=== PATIENT | male | born 1950 | race Caucasian/White ===

== ENCOUNTER 2017-04-22 09:07 | Emergency (ER) | payer MEDICARE, OTHER ==
[~2017-04-22] VITALS: Ht 170.2 cm; Wt 93.0 kg
[2017-04-22 09:08] VITALS: BP 137/94; PULSE 94; RESP 18; TEMP 97.7; O2SAT 99
[2017-04-22] MEDS ORDERED: IOHEXOL 350 MG/ML 10 ML VIAL (for RAD DIAG) IVCONTRAST ONE (09:08)
[2017-04-22] MEDS ORDERED: PRIL20TA2 PO (09:23)
--- NOTE | 2017-04-22 11:02 | PD ---
HPI Chief Complaint: GI Complaint Time Seen by Provider: 10:59 Travel History International Travel<30 days: No Contact w/Intl Traveler<30days: No Traveled to known affect area: No History of Present Illness HPI 67 YO M with PMH of prostate cancer, diverticulitis presents to the ED for evaluation of 6 month history of abdominal pain, described as tightness across the belt line. Worsened since he ate Slov[place] food 3 days ago. Rated 8/10. No alleviating factors reported. Denies N/V/D, F/C. Endorses dark stools for 3 days. Endorses passing gas. Denies dysuria, hematuria. No treatment at that home. States that the tightness became annoying and painful and prompted his visit today. He endorses daily alcohol use. Denies history of pancreatitis. He lives hands parter in [facility], followed by Dr. Clark here. PFSH Past Medical History Cancer: Yes (PROSTATE 2004) Gastrointestinal Disorders: Yes (DIVERTICULITIS) GERD: Yes Tetanus Vaccination: > 5 Years Past Surgical History Other Surgery: Yes (PROSTATE) Social History Alcohol Use: No Tobacco Use: No Substance Use: No Allergies-Medications (Allergen,Severity, Reaction): Coded Allergies: No Known Allergies (Unverified , 04/22/17) Reported Meds & Prescriptions Reported Meds & Active Scripts Active Oxycodone-Acetaminophen 5-325 mg Tab 1 Tab PO Q6H PRN Flagyl (Metronidazole) 500 Mg Tab 500 Mg PO TID 7 Days Cipro (Ciprofloxacin HCl) 500 Mg Tab 500 Mg PO BID 7 Days Reported Prilosec (Omeprazole Magnesium) 20 Mg Tab 20 Mg PO DAILY Review of Systems Except as stated in HPI: all other systems reviewed are Neg Physical Exam Narrative GENERAL: Well-nourished, well-developed nontoxic appearing white male in no acute distress. SKIN: Focused skin assessment warm/dry. HEAD: Normocephalic. EYES: No scleral icterus. No injection or drainage. NECK: Supple, trachea midline. No JVD or lymphadenopathy. CARDIOVASCULAR: Regular rate and rhythm without murmurs, gallops, or rubs. RESPIRATORY: Breath sounds clear and equal bilaterally. No accessory muscle use. GASTROINTESTINAL: Abdomen soft, nondistended. Tender to palpation in the lateral LUQ. Active bowel sounds. RECTAL EXAM: No masses or tenderness, stool is brown. Guaiac negative. MUSCULOSKELETAL: No cyanosis, or edema. BACK: Nontender without obvious deformity. No CVA tenderness. Data Data Last Documented VS Vital Signs Date Time Temp Pulse Resp B/P (MAP) Pulse Ox O2 Delivery O2 Flow Rate FiO2 04/22/17 14:21 04/22/17 09:08 97.7 94 18 99 Room Air Orders Orders Complete Blood Count With Diff (04/22/17 11:08) Comprehensive Metabolic Panel (04/22/17 11:08) Lipase (04/22/17 11:08) Lactic Acid (04/22/17 11:08) Urinalysis - C+S If Indicated (04/22/17 11:08) Iv Access Insert/Monitor (04/22/17 11:08) Ecg Monitoring (04/22/17 11:08) Oximetry (04/22/17 11:08) Sodium Chloride 0.9% Flush (Ns Flush) (04/22/17 11:15) Ct Abd/Pel W Iv Contrast(Rout) (04/22/17 11:18) Morphine Inj (Morphine Inj) (04/22/17 12:00) Ondansetron Inj (Zofran Inj) (04/22/17 12:00) Sodium Chlorid 0.9% 500 Ml Inj (Ns 500 M (04/22/17 12:00) Iohexol 350 Inj (Omnipaque 350 Inj) (04/22/17 09:08) Ed Discharge Order (04/22/17 13:45) Labs Laboratory Tests Test 04/22/17 11:15 04/22/17 11:20 White Blood Count 9.6 TH/MM3 Red Blood Count 4.42 MIL/MM3 Hemoglobin 15.4 GM/DL Hematocrit 43.7 % Mean Corpuscular Volume 99.0 FL Mean Corpuscular Hemoglobin 34.8 PG Mean Corpuscular Hemoglobin Concent 35.2 % Red Cell Distribution Width 12.3 % Platelet Count 153 TH/MM3 Mean Platelet Volume 9.0 FL Neutrophils (%) (Auto) 73.7 % Lymphocytes (%) (Auto) 14.9 % Monocytes (%) (Auto) 10.3 % Eosinophils (%) (Auto) 0.6 % Basophils (%) (Auto) 0.5 % Neutrophils # (Auto) 7.1 TH/MM3 Lymphocytes # (Auto) 1.4 TH/MM3 Monocytes # (Auto) 1.0 TH/MM3 Eosinophils # (Auto) 0.1 TH/MM3 Basophils # (Auto) 0.0 TH/MM3 CBC Comment DIFF FINAL Differential Comment Blood Urea Nitrogen 14 MG/DL Creatinine 0.75 MG/DL Random Glucose 77 MG/DL Total Protein 7.4 GM/DL Albumin 3.7 GM/DL Calcium Level 8.7 MG/DL Alkaline Phosphatase 57 U/L Aspartate Amino Transf (AST/SGOT) 20 U/L Alanine Aminotransferase (ALT/SGPT) 19 U/L Total Bilirubin 2.0 MG/DL Sodium Level 136 MEQ/L Potassium Level 3.9 MEQ/L Chloride Level 104 MEQ/L Carbon Dioxide Level 25.9 MEQ/L Anion Gap 6 MEQ/L Estimat Glomerular Filtration Rate 104 ML/MIN Lactic Acid Level 0.8 mmol/L Lipase 147 U/L Urine Color LIGHT-YELLOW Urine Turbidity CLEAR Urine pH 6.5 Urine Specific [place] 1.007 Urine Protein NEG mg/dL Urine Glucose (UA) NEG mg/dL Urine Ketones NEG mg/dL Urine Occult Blood NEG Urine Nitrite NEG Urine Bilirubin NEG Urine Urobilinogen LESS THAN 2.0 MG/DL Urine Leukocyte Esterase TRACE Urine RBC LESS THAN 1 /hpf Urine WBC 2 /hpf Urine Bacteria OCC /hpf Urine Hyaline Casts 1 /lpf Microscopic Urinalysis Comment CULT NOT INDICATED MDM Medical Decision Making Medical Screen Exam Complete: Yes Emergency Medical Condition: Yes Differential Diagnosis Diverticulitis versus static cancer versus pancreatitis versus constipation versus other Narrative Course 67 -year-old male with PMH of prostate CA, diverticulitis presents to the ED for evaluation of 6 month history 8, "tight" abdominal pain across the belt line. Worsened 3 days after eating [place] food. Endorses dark stools for 3 days. Endorses passing gas. Sought treatment today after the pain became "annoying." Endorses daily alcoholic use. Lives part-time in [facility] in [place] the rest the year. Followed locally by Dr. Clark. Vitals reviewed. Physical exam reveals a nontoxic-appearing white male in no acute distress. Abdomen soft, tender to deep palpation in the left lateral upper quadrant. Active bowel sounds. Exam otherwise unremarkable. IV was established. Patient was administered 4 mg Zofran, 4 mg morphine IV. CBC: WBC 9.6. Hemoglobin 15.4. CMP: BUN 14. Creatinine 0.75. Bilirubin elevated at 2.0. AST and ALT within normal limits Lipase: 147 Lactic acid: 0.8 UA: Clear, light yellow, trace leukocyte esterase, occasional bacteria. No culture indicated. CT abdomen and pelvis: 1. Acute distal descending and proximal sigmoid diverticulitis without perforation, abscess, or obstruction. 2. Multiple sclerotic foci involving the lumbar spine and pelvis consistent with metastatic disease. No primary lesion observed. Possibly prostate in origin. 3. Cholelithiasis. I discussed the results of the workup with the patient. He is aware of metastatic disease in the spine and pelvis. Other less I provided him a copy of the CT report to discuss with Dr. Clark. I think he can be safely treated at home. He is agreeable with this plan. He is prescribed Flagyl and Cipro, provided a brief course of pain medications. He was provided a diverticulitis diet. He is instructed take the medication as prescribed, drink plenty of fluids, return for worsening symptoms, otherwise follow up with Dr. Clark. The patient indicated understanding of the instructions. He is stable and discharged home. Diagnosis Primary Impression: Diverticulitis Additional Impression: Prostate cancer metastatic to bone Referrals: Katie Clark MD Primary Care Physician Patient Instructions: Diverticulitis (ED), Diverticulitis Diet (ED), General Instructions Additional Instructions: Rest, hydrate. Take antibiotics as they are prescribed, even if your symptoms resolve. Take pain and nausea medications as prescribed, as needed. Do not drive while taking pain medications as they may cause drowsiness. Follow-up with Dr. Clark as discussed. Return to the ED for worsening of symptoms or urgent or emergent medical condition. Med/Other Pt SpecificInfo: Prescription(s) given Scripts Oxycodone-Acetaminophen (Oxycodone-Acetaminophen) 5-325 mg Tab 1 TAB PO Q6H Y for PAIN, #10 TAB 0 Refills Prov: Ronda Rai MD 04/22/17 Metronidazole (Flagyl) 500 Mg Tab 500 MG PO TID for Infection for 7 Days, TAB 0 Refills Prov: Ronda Rai MD 04/22/17 Ciprofloxacin (Cipro) 500 Mg Tab 500 MG PO BID for Infection for 7 Days, #14 TAB 0 Refills Prov: Ronda Rai MD 04/22/17 Disposition: 01 DISCHARGE HOME Condition: Stable Norma Mohamud Apr 22, 2017 11:02
[2017-04-22] MEDS ORDERED: SODIUM CHLORIDE 0.9% FLUSH 10 ML FLUSH IV FLUSH PRN (11:15)
[2017-04-22 11:45] LABS: AUTOMATED NEUTROPHIL # 7.1 TH/MM3 (1.8-7.7); BASOPHIL % 0.5 % (0.0-2.0); EOSINOPHIL # 0.1 TH/MM3 (0-0.4); EOSINOPHIL % 0.6 % (0.0-4.0); HEMATOCRIT 43.7 % (39.0-51.0); HEMOGLOBIN 15.4 GM/DL (13.0-17.0); LYMPH % 14.9 % (9.0-44.0); LYMPHOCYTE # 1.4 TH/MM3 (1.0-4.8); MEAN CORPUSCULAR HEMOGLOBIN 34.8 PG (27.0-34.0); MEAN CORPUSCULAR HGB CONC 35.2 % (32.0-36.0); MONO % 10.3 % (0.0-8.0); NEUT % 73.7 % (16.0-70.0); PLATELET COUNT 153 TH/MM3 (150-450); RED BLOOD COUNT 4.42 MIL/MM3 (4.50-5.90); RED CELL DISTRIBUTION WIDTH 12.3 % (11.6-17.2); WHITE BLOOD COUNT 9.6 TH/MM3 (4.0-11.0)
[2017-04-22 11:53] LABS: BACTERIA, URINE OCC /hpf; BILIRUBIN, URINE NEG (NEG); BLOOD, URINE NEG (NEG); GLUCOSE,URINE NEG (NEG); HYALINE CAST, URINE 1 /lpf (RARE); KETONE, URINE NEG (NEG); NITRITE,URINE NEG (NEG); PH, URINE 6.5 (5.0-8.5); URINE COLOR LIGHT-YELLOW (YELLW/STRAW); URINE LEUKOCYTE ESTERASE TRACE (NEG)
[2017-04-22] MEDS ORDERED: MORPHINE SULFATE 4 MG/ML INJ IV PUSH ONE (12:00)
[2017-04-22] MEDS ORDERED: ONDANSETRON HCL 4 MG/2 ML VIAL IV PUSH ONE (12:00)
[2017-04-22] MEDS ORDERED: SODIUM CHLORID 0.9% 500 ML INJ 500 ML IV ONE (12:00)
[2017-04-22 12:07] LABS: ALBUMIN 3.7 GM/DL (3.4-5.0); AST (GOT) 20 U/L (15-37); BICARBONATE 25.9 MEQ/L (21.0-32.0); BLOOD UREA NITROGEN 14 MG/DL (7-18); CALCIUM 8.7 MG/DL (8.5-10.1); CHLORIDE 104 MEQ/L (98-107); CREATININE 0.75 MG/DL (0.60-1.30); GLOMERULAR FILTRATION RATE 104 ML/MIN (>89); GLUCOSE,RANDOM 77 MG/DL (74-106); LIPASE 147 U/L (73-393); SODIUM (NA) 136 MEQ/L (136-145)
[2017-04-22 12:08] LABS: ALT (GPT) 19 U/L (12-78)
[2017-04-22 12:24] LABS: ALKALINE PHOSPHATASE 57 U/L (45-117); TOTAL PROTEIN 7.4 GM/DL (6.4-8.2)
--- NOTE | 2017-04-22 13:29 | RADRPT ---
EXAM DATE/TIME: 04/22/2017 12:46 This report includes an Addendum and supersedes previous reports for this exam. [facility] COMPARISON: No previous studies available for comparison. INDICATIONS : Lower abdominal pain, dark stools. IV CONTRAST: 88 cc Omnipaque 350 (iohexol) IV ORAL CONTRAST: No oral contrast ingested. RADIATION DOSE: 7.7 CTDIvol (mGy) MEDICAL HISTORY : Carcinoma, prostate. Diverticulosis. Facet arthritis. SURGICAL HISTORY : None. ENCOUNTER: Initial ACUITY: 2 days PAIN SCALE: 4/10 LOCATION: Bilateral lower quadrant TECHNIQUE: Volumetric scanning of the abdomen and pelvis was performed. Using automated exposure control and ad justment of the mA and/or kV according to patient size, radiation dose was kept as low as reasonably achievable to obtain optimal diagnostic quality images. DICOM format image data is available electro nically for review and comparison. FINDINGS: LOWER LUNGS: Mild bibasilar atelectasis. Coronary artery atherosclerotic calcific agent. Heart is normal in size. LIVER: Homogeneous density without lesion. There is no dilation of the biliary tree. Small calcified gallst ones layering within an otherwise normal appearing gallbladder. SPLEEN: Normal size without lesion. PANCREAS: Within normal limits. KIDNEYS: Normal in size and shape. There is no mass, stone or hydronephrosis. ADRENAL GLANDS: Within normal limits. VASCULAR: There is no aortic aneurysm. BOWEL/MESENTERY: There is an acute inflammatory process involving the distal descending colon extending into the proxi mal sigmoid colon. There is cervical vertebral wall thickening and stranding of the adjacent fat. Mul tiple diverticula are seen throughout this region. No free air or free fluid. No abscess. Small bowel and stomach are normal. ABDOMINAL WALL: Within normal limits. RETROPERITONEUM: There is no lymphadenopathy. BLADDER: No wall thickening or mass. A small right-sided Hutch diverticulum. REPRODUCTIVE: Prostate gland is either atrophic or surgically absent. INGUINAL: There is no lymphadenopathy or hernia. MUSCULOSKELETAL: Old right sided rib fractures with lack of union. Sclerotic lesions are seen scattered throughout the lumbar spine, sacrum, and visualized portions of the iliac wings. CONCLUSION: 1. Acute distal descending and proximal sigmoid diverticulitis without perforation, abscess, or obstr uction. 2. Multiple sclerotic foci involving the lumbar spine and pelvis consistent with metastatic disease. No primary lesion observed. Possibly prostate in origin. 3. Cholelithiasis. Saqib Montes Jr., MD on April 22, 2017 at 13:21 Board Certified Radiologist. This report was verified electronically. ADDENDUM: I have compared to a prior CT abdomen and pelvis from [facility] dated May 01, 2016. The sclerotic foci throughout the spine and pelvis are stable from that exam. No new or enlarging lesions are observed. Saqib Montes Jr., MD on April 24, 2017 at 11:28 Board Certified Radiologist. This report was verified electronically.
[2017-04-22] MEDS ORDERED: CIPR-9 PO (13:44)
[2017-04-22] MEDS ORDERED: OXYC1TAB63 PO (13:44)
[2017-04-22] MEDS ORDERED: METR-1 PO (13:44)
[2017-04-24] MEDS ORDERED: [UNRECOGNIZED DRUG - CODE] IM (14:55)
[2017-05-12] MEDS ORDERED: METR-1 PO (10:46)
[2017-05-12] MEDS ORDERED: CIPR-9 PO (10:46)
[2017-05-19] MEDS ORDERED: PROT40TA PO (12:25)
[2017-05-19] MEDS ORDERED: AUGM875T3 PO (12:25)
== END 2017-04-22 14:24 | disposition home or self-care (01) ==
LOC: NEPE 09:07
DX: K57.92 Diverticulitis of intestine, part unspecified, without perforation or abscess without bleeding (principal); C61 Malignant neoplasm of prostate; C79.51 Secondary malignant neoplasm of bone; K80.20 Calculus of gallbladder without cholecystitis without obstruction; K21.9 Gastro-esophageal reflux disease without esophagitis; Z79.899 Other long term (current) drug therapy
CPT/HCPCS: 74177; 80053; 81001; 83605; 83690; 85025; 96361; 96374; 96375; 99285; J2270; J2405; J7040; Q9967

== ENCOUNTER 2017-05-29 14:12 | Emergency (ER) | payer MEDICARE, OTHER ==
[~2017-05-29] VITALS: Ht 177.8 cm; Wt 86.0 kg
[~2017-05-29 14:12] MED LIST: AUGM875T3 PO; CIPR-9 PO; METR-1 PO; OXYC1TAB63 PO; PRIL20TA2 PO; PROT40TA PO
[2017-05-29] MEDS ORDERED: IOHEXOL 350 MG/ML 10 ML VIAL (for RAD DIAG) IVCONTRAST ONE (14:13)
[2017-05-29 14:14] VITALS: BP 193/99; PULSE 71; RESP 18; TEMP 97.9; O2SAT 96
[2017-05-29] MEDS ORDERED: SODIUM CHLOR 0.9% 1000 ML INJ 1,000 ML IV SCH (14:54)
[2017-05-29] MEDS ORDERED: SODIUM CHLORIDE 0.9% FLUSH 10 ML FLUSH IV FLUSH PRN (15:00)
[2017-05-29] MEDS ORDERED: MORPHINE SULFATE 4 MG/ML INJ IV PUSH ONE (15:00)
[2017-05-29] MEDS ORDERED: ONDANSETRON HCL 4 MG/2 ML VIAL IV PUSH ONE (15:00)
--- NOTE | 2017-05-29 15:01 | PD ---
HPI Chief Complaint: Abdominal Pain Time Seen by Provider: 14:47 Travel History International Travel<30 days: No Contact w/Intl Traveler<30days: No Traveled to known affect area: No History of Present Illness HPI 67-year-old male presents for evaluation of abdominal pain. He reports that for over a month he has had left lower quadrant/left flank abdominal pain. Initially he was seen here in April 22 and found to have diverticulitis. Initially was started on ciprofloxacin and Flagyl. Patient's symptoms persisted and on May 19 his primary care physician prescribed him Protonix and Augmentin. He was seen again today by his primary care physician and sent here for further evaluation and treatment. He reports that the pain is worse than when he was initially seen in March. He describes it as a crampy left lower quadrant abdominal pain which is constant. He endorses some nausea. Denies vomiting, diarrhea, constipation, dysuria, fevers, chills. No other complaints. PFSH Past Medical History Cancer: Yes (PROSTATE 2004) Gastrointestinal Disorders: Yes (DIVERTICULITIS) GERD: Yes Past Surgical History Other Surgery: Yes (PROSTATE) Social History Alcohol Use: No Tobacco Use: No Substance Use: No Allergies-Medications (Allergen,Severity, Reaction): Coded Allergies: No Known Allergies (Unverified , 05/29/17) Reported Meds & Prescriptions Reported Meds & Active Scripts Active Phenergan (Promethazine HCl) 25 Mg Tablet 25 Mg PO Q6H PRN Augmentin (Amoxicillin-Clavulanate) 875-125 Mg Tab 1 Tab PO BID 5 Days Protonix (Pantoprazole Sodium) 40 Mg Tab 40 Mg PO DAILY 30 Days Flagyl (Metronidazole) 500 Mg Tab 500 Mg PO TID 10 Days Cipro (Ciprofloxacin HCl) 500 Mg Tab 500 Mg PO BID 10 Days Oxycodone-Acetaminophen 5-325 mg Tab 1 Tab PO Q6H PRN Reported Prilosec (Omeprazole Magnesium) 20 Mg Tab 20 Mg PO DAILY Review of Systems Except as stated in HPI: all other systems reviewed are Neg Physical Exam Narrative GENERAL: Well-developed well-nourished male in no acute distress SKIN: Warm and dry. HEAD: Atraumatic. Normocephalic. EYES: Pupils equal and round. No scleral icterus. No injection or drainage. ENT: No nasal bleeding or discharge. Mucous membranes pink and moist. NECK: Trachea midline. No JVD. CARDIOVASCULAR: Regular rate and rhythm. No murmur appreciated. RESPIRATORY: No accessory muscle use. Clear to auscultation. Breath sounds equal bilaterally. GASTROINTESTINAL: Abdomen soft, left lower quadrant tenderness without guarding. No CVA tenderness. MUSCULOSKELETAL: No obvious deformities. No clubbing. No cyanosis. No edema. NEUROLOGICAL: Awake and alert. No obvious cranial nerve deficits. Motor grossly within normal limits. Normal speech. PSYCHIATRIC: Appropriate mood and affect; insight and judgment normal. Data Data Last Documented VS Vital Signs Date Time Temp Pulse Resp B/P (MAP) Pulse Ox O2 Delivery O2 Flow Rate FiO2 05/29/17 16:56 17 05/29/17 14:14 97.9 71 193/99 (130) 96 Room Air Orders Orders Complete Blood Count With Diff (05/29/17 14:51) Comprehensive Metabolic Panel (05/29/17 14:51) Lipase (05/29/17 14:51) Lactic Acid (05/29/17 14:51) Prothrombin Time / Inr (Pt) (05/29/17 14:51) Act Partial Throm Time (Ptt) (05/29/17 14:51) Urinalysis - C+S If Indicated (05/29/17 14:51) Ct Abd/Pel W Iv Contrast(Rout) (05/29/17 14:51) Iv Access Insert/Monitor (05/29/17 14:51) Ecg Monitoring (05/29/17 14:51) Oximetry (05/29/17 14:51) Sodium Chloride 0.9% Flush (Ns Flush) (05/29/17 15:00) Ondansetron Inj (Zofran Inj) (05/29/17 15:00) Sodium Chlor 0.9% 1000 Ml Inj (Ns 1000 M (05/29/17 14:54) Morphine Inj (Morphine Inj) (05/29/17 15:15) Iohexol 350 Inj (Omnipaque 350 Inj) (05/29/17 14:13) Dicyclomine Inj (Bentyl Inj) (05/29/17 17:30) Ed Discharge Order (05/29/17 17:46) Labs Laboratory Tests Test 05/29/17 15:20 05/29/17 16:50 White Blood Count 6.3 TH/MM3 Red Blood Count 4.60 MIL/MM3 Hemoglobin 15.8 GM/DL Hematocrit 43.9 % Mean Corpuscular Volume 95.3 FL Mean Corpuscular Hemoglobin 34.3 PG Mean Corpuscular Hemoglobin Concent 35.9 % Red Cell Distribution Width 12.2 % Platelet Count 145 TH/MM3 Mean Platelet Volume 7.7 FL Neutrophils (%) (Auto) 79.8 % Lymphocytes (%) (Auto) 12.5 % Monocytes (%) (Auto) 6.9 % Eosinophils (%) (Auto) 0.6 % Basophils (%) (Auto) 0.2 % Neutrophils # (Auto) 5.1 TH/MM3 Lymphocytes # (Auto) 0.8 TH/MM3 Monocytes # (Auto) 0.4 TH/MM3 Eosinophils # (Auto) 0.0 TH/MM3 Basophils # (Auto) 0.0 TH/MM3 CBC Comment DIFF FINAL Differential Comment Prothrombin Time 10.7 SEC Prothromb Time International Ratio 1.1 RATIO Activated Partial Thromboplast Time 28.2 SEC Blood Urea Nitrogen 10 MG/DL Creatinine 0.62 MG/DL Random Glucose 91 MG/DL Total Protein 7.3 GM/DL Albumin 3.9 GM/DL Calcium Level 8.8 MG/DL Alkaline Phosphatase 54 U/L Aspartate Amino Transf (AST/SGOT) 16 U/L Alanine Aminotransferase (ALT/SGPT) 26 U/L Total Bilirubin 2.0 MG/DL Sodium Level 135 MEQ/L Potassium Level 3.9 MEQ/L Chloride Level 99 MEQ/L Carbon Dioxide Level 24.4 MEQ/L Anion Gap 12 MEQ/L Estimat Glomerular Filtration Rate 129 ML/MIN Lactic Acid Level 1.0 mmol/L Lipase 156 U/L Urine Color YELLOW Urine Turbidity CLEAR Urine pH 6.5 Urine Specific [place] 1.019 Urine Protein TRACE mg/dL Urine Glucose (UA) NEG mg/dL Urine Ketones 80 mg/dL Urine Occult Blood NEG Urine Nitrite NEG Urine Bilirubin NEG Urine Urobilinogen LESS THAN 2.0 MG/DL Urine Leukocyte Esterase NEG Urine RBC 1 /hpf Urine WBC 1 /hpf Urine Mucus FEW /lpf Microscopic Urinalysis Comment CULT NOT INDICATED MDM Medical Decision Making Medical Screen Exam Complete: Yes Emergency Medical Condition: Yes Medical Record Reviewed: Yes Differential Diagnosis Diverticulitis, gastritis, ureteral stone, constipation, colitis, mesenteric ischemia, obstruction Narrative Course 67-year-old male who was recently treated for diverticulitis presents with persistent left-sided abdominal pain, some nausea. On examination he has mild left lower quadrant tenderness no guarding. Plan is basically lab work, CT abdomen and pelvis. CT abdomen and pelvis reveals CONCLUSION: 1. DrNidia Shelley sigmoid colon without diverticulitis 2. Right bladder diverticulum 3. No stone or obstruction 4. No inflammatory changes. 5. Gallstones in a benign-appearing gallbladder. The patient has no evidence of diverticulitis on CT imaging. He has no leukocytosis or fever that would warrant additional antibiotic therapy. I did notify Dr. Angeles who is on-call for the patient's primary care physician. He is stable for discharge. Diagnosis Primary Impression: Abdominal pain Additional Instructions: Phenergan for nausea. Advance diet as tolerated. Follow-up with your primary care physician and gastroenterology as scheduled. Return for any acutely new or worsening symptoms. Med/Other Pt SpecificInfo: Prescription(s) given Scripts Promethazine (Phenergan) 25 Mg Tablet 25 MG PO Q6H Y for NAUSEA OR VOMITING, #20 TAB 0 Refills Prov: Cecil Franklin MD 05/29/17 Disposition: 01 DISCHARGE HOME Condition: Stable Chris Abraham May 29, 2017 15:01
[2017-05-29] MEDS ORDERED: MORPHINE SULFATE 2 MG/ML INJ IV PUSH ONE (15:15)
[2017-05-29 15:43] LABS: AUTOMATED NEUTROPHIL # 5.1 TH/MM3 (1.8-7.7); BASOPHIL % 0.2 % (0.0-2.0); EOSINOPHIL % 0.6 % (0.0-4.0); HEMATOCRIT 43.9 % (39.0-51.0); HEMOGLOBIN 15.8 GM/DL (13.0-17.0); LYMPH % 12.5 % (9.0-44.0); LYMPHOCYTE # 0.8 TH/MM3 (1.0-4.8); MEAN CELL VOLUME 95.3 FL (80.0-100.0); MEAN CORPUSCULAR HEMOGLOBIN 34.3 PG (27.0-34.0); MEAN CORPUSCULAR HGB CONC 35.9 % (32.0-36.0); MEAN PLATELET VOLUME 7.7 FL (7.0-11.0); MONO % 6.9 % (0.0-8.0); MONOCYTE # 0.4 TH/MM3 (0-0.9); NEUT % 79.8 % (16.0-70.0); PLATELET COUNT 145 TH/MM3 (150-450); RED CELL DISTRIBUTION WIDTH 12.2 % (11.6-17.2); WHITE BLOOD COUNT 6.3 TH/MM3 (4.0-11.0)
[2017-05-29 15:53] LABS: INTERNATIONAL NORMALIZED RATIO 1.1 RATIO; PROTHROMBIN TIME - PATIENT 10.7 SEC (9.8-11.6)
[2017-05-29 16:05] LABS: ALBUMIN 3.9 GM/DL (3.4-5.0); ALT (GPT) 26 U/L (12-78); AST (GOT) 16 U/L (15-37); BICARBONATE 24.4 MEQ/L (21.0-32.0); BLOOD UREA NITROGEN 10 MG/DL (7-18); CALCIUM 8.8 MG/DL (8.5-10.1); CHLORIDE 99 MEQ/L (98-107); CREATININE 0.62 MG/DL (0.60-1.30); GLOMERULAR FILTRATION RATE 129 ML/MIN (>89); GLUCOSE,RANDOM 91 MG/DL (74-106); LIPASE 156 U/L (73-393); SODIUM (NA) 135 MEQ/L (136-145)
[2017-05-29 16:12] LABS: ALKALINE PHOSPHATASE 54 U/L (45-117); TOTAL PROTEIN 7.3 GM/DL (6.4-8.2)
[2017-05-29 16:56] VITALS: RESP 17
--- NOTE | 2017-05-29 17:12 | RADRPT ---
EXAM DATE/TIME: 05/29/2017 16:42 [facility] COMPARISON: CT ABDOMEN & PELVIS W CONTRAST, April 22, 2017, 12:46. INDICATIONS : Left flank and lower qaudrant pain. IV CONTRAST: 93 cc Omnipaque 350 (iohexol) IV ORAL CONTRAST: No oral contrast ingested. RADIATION DOSE: 7.31 CTDIvol (mGy) MEDICAL HISTORY : Carcinoma, prostate. Diverticulitis. SURGICAL HISTORY : None. ENCOUNTER: Initial ACUITY: 1 day PAIN SCALE: 7/10 LOCATION: Left lower quadrant flank TECHNIQUE: Volumetric scanning of the abdomen and pelvis was performed. Using automated exposure control and ad justment of the mA and/or kV according to patient size, radiation dose was kept as low as reasonably achievable to obtain optimal diagnostic quality images. DICOM format image data is available electro nically for review and comparison. FINDINGS: Lung base is are clear. Old right rib fractures are noted. Liver and spleen are unremarkable Gallstones are seen the benign gallbladder Pancreas and adrenals appear normal Symmetric renal function without stone or mass There is no ascites or adenopathy Cecum and terminal unremarkable There is no intracranial adenopathy Diverticuli seen in sigmoid colon. Right bladder diverticulum is evident. CONCLUSION: 1. DrNidia November sigmoid colon without diverticulitis 2. Right bladder diverticulum 3. No stone or obstruction 4. No inflammatory changes. 5. Gallstones in a benign-appearing gallbladder. Antonio Up MD FACR on May 29, 2017 at 17:05 Board Certified Radiologist. This report was verified electronically.
[2017-05-29 17:14] LABS: BILIRUBIN, URINE NEG (NEG); BLOOD, URINE NEG (NEG); GLUCOSE,URINE NEG (NEG); KETONE, URINE 80 mg/dL (NEG); MUCUS URINE FEW /lpf (OCC); NITRITE,URINE NEG (NEG); PH, URINE 6.5 (5.0-8.5); URINE COLOR YELLOW (YELLW/STRAW); URINE LEUKOCYTE ESTERASE NEG (NEG)
[2017-05-29] MEDS ORDERED: DICYCLOMINE HCL 20 MG/2 ML VIAL IM ONE (17:30)
[2017-05-29] MEDS ORDERED: PROM25TA10 PO (17:46)
== END 2017-05-29 19:04 | disposition home or self-care (01) ==
LOC: NEPE 14:12
DX: R10.32 Left lower quadrant pain (principal); N32.3 Diverticulum of bladder; K21.9 Gastro-esophageal reflux disease without esophagitis
CPT/HCPCS: 74177; 80053; 81001; 83605; 83690; 85025; 85610; 85730; 96361; 96372; 96374; 96375; 99285; J0500; J2270; J2405; J7030; Q9967